=== PATIENT | female | born 1995 | race Caucasian/White ===

== ENCOUNTER → 2022-11-30 | Outpatient (CLI) | payer OTHER, SELFPAY ==
[2022-12-04 06:07] LABS: Chlamydia By Nucleic Acid AMP Negative (Negative)
[2022-12-04 10:07] LABS: Gonococcus By Nucleic Acid AMP Negative (Negative)
== END | disposition home or self-care (01) ==
LOC: LABSPEC 16:12
PROVIDERS: Visit Provider Obstetrics & Gynecology
DX: Z34.90 Encounter for supervision of normal pregnancy, unspecified, unspecified trimester (principal)
CPT/HCPCS: 87086; 87088; 87491; 87591

== ENCOUNTER → 2022-12-29 | Outpatient (CLI) | payer OTHER, SELFPAY ==
[2022-12-29 11:00] LABS: Absolute Neutrophil Count 7.4 X10^3/uL (2.0-7.7); Basophil# 0.02 X10^3/uL; Basophil% 0.2 % (0-1); Eosinophil# 0.09 X10^3/uL; Eosinophils% 0.9 % (0-5); Hematocrit 40.3 % (37-47); Hemoglobin 13.3 g/dL (12.0-15.0); Mean Corpuscular Hgb 28.4 pg (27.0-32.0); Mean Corpuscular Volume 86.1 fL (81-99); Mean Platelet Vol. 11.2 fl (6.2-12.0); NRBC Flagged by Analyzer 0 % (0-5); Neutrophil # 7.42 X10^3/uL (2.7-7.7); Neutrophil % 74.3 % (47-70); Platelet Count 255 K/mm3 (150-450); RBC Distribution Width CV 13.2 % (11.6-14.6); RBC Distribution Width SD 40.9 fl (35.1-43.9); Red Blood Count 4.68 M/mm3 (4.2-5.4)
[2022-12-29 11:15] LABS: Glucose Challenge Gest 1H 50g 121 mg/dL (70-140)
[2022-12-29 11:51] LABS: NATERA MAILED SPECIMEN
[2022-12-29 11:55] LABS: HIV - WCH Non-Reactive (Nonreactive); Hepatitis B Surface Antigen Non-Reactive (Nonreactive); Hepatitis C Antibody Non-Reactive (Nonreactive); Rubella IgG Reactive (Nonreactive); Syphilis Antibodies Non-reactive
== END | disposition home or self-care (01) ==
LOC: PAVLAB 10:39
PROVIDERS: Referring Provider Obstetrics & Gynecology; Visit Provider Obstetrics & Gynecology
DX: Z34.81 Encounter for supervision of other normal pregnancy, first trimester (principal); Z31.430 Encounter of female for testing for genetic disease carrier status for procreative management
CPT/HCPCS: 36415; 82950; 85025; 86703; 86762; 86780; 86803; 86850; 86900; 86901; 87340

== ENCOUNTER → 2023-01-25 | Outpatient (CLI) | payer OTHER, SELFPAY | END | disposition home or self-care (01) | PROVIDERS: Referring Provider Obstetrics & Gynecology; Visit Provider Obstetrics & Gynecology | DX: R07.0 Pain in throat (principal) | CPT/HCPCS: 36415; 87081 ==

== ENCOUNTER → 2023-03-28 | Outpatient (CLI) | payer OTHER, SELFPAY ==
[2023-03-28 16:20] LABS: Absolute Lymphocyte Count 1.99 X10^3/uL (0.83-4.51); Basophil# 0.02 X10^3/uL; Basophil% 0.2 % (0-1); Eosinophil# 0.11 X10^3/uL; Hematocrit 34.3 % (37-47); Hemoglobin 11.7 g/dL (12.0-15.0); Lymphocyte # 1.99 X10^3/ul (0.83-4.51); Lymphocyte % 18.3 % (19-41); Mean Corp Hgb Conc 34.1 g/dL (32-36); Mean Corpuscular Hgb 29.8 pg (27.0-32.0); Mean Corpuscular Volume 87.3 fL (81-99); Mean Platelet Vol. 10.5 fl (6.2-12.0); Monocyte# 0.67 X10^3/uL; Monocyte% 6.2 % (0-10); NRBC Flagged by Analyzer 0 % (0-5); Neutrophil # 8.03 X10^3/uL (2.7-7.7); Neutrophil % 73.8 % (47-70); Platelet Count 258 K/mm3 (150-450); RBC Distribution Width CV 12.9 % (11.6-14.6); RBC Distribution Width SD 41.1 fl (35.1-43.9); Red Blood Count 3.93 M/mm3 (4.2-5.4); White Blood Count 10.9 K/mm3 (4.4-11.0)
[2023-03-28 16:38] LABS: Glucose Challenge Gest 1H 50g 99 mg/dL (70-140)
[2023-03-28 17:04] LABS: HIV - WCH Non-Reactive (Nonreactive); Syphilis Antibodies Non-reactive
== END | disposition home or self-care (01) ==
LOC: PAVLAB 15:56
PROVIDERS: Referring Provider Obstetrics & Gynecology; Visit Provider Obstetrics & Gynecology
DX: Z13.1 Encounter for screening for diabetes mellitus (principal); Z3A.21 21 weeks gestation of pregnancy
CPT/HCPCS: 36415; 82950; 85025; 86703; 86780

== ENCOUNTER → 2023-05-10 | Outpatient (CLI) | payer OTHER, SELFPAY ==
--- NOTE | 2023-05-10 13:26 | US_ITS ---
STUDY: SECOND AND THIRD TRIMESTER OBSTETRICAL ULTRASOUND - LIMITED REASON FOR EXAM: Female, 28 years old growth -- 32 weeks LMP: September 27, 2022. PRIOR ULTRASOUND: None. TECHNIQUE: Transabdominal TECHNICAL QUALITY: Adequate. FINDINGS: There is a single intrauterine fetus. The fetus is in a cephalic presentation. There is demonstrated cardiac activity with a heart rate of 145 bpm. There is a normal amniotic fluid volume. The largest amniotic fluid pocket measures 7.5 cm. The amniotic fluid index (DARYL) is 20.0 cm. The placenta is anterior in location and is not low lying. There are Grade 1 placental changes. The cervix measures 3.2 cm in length. BIOMETRY: BPD: 8.5 cm: 34 weeks, 0 days HC: 31 cm: 34 weeks, 4 days AC: 28.4 cm: 32 weeks, 3 days FL: 6.2 cm: 32 weeks, 2 days Age by LMP: 32 weeks, 1 days. RITO by LMP: July 04, 2023. age by current US: 33 weeks, 5 days. RITO by current US: June 23, 2023. Estimated weight: 2042 grams, +/- 306 grams, 59 percentile. US/OB Limited With Biometrics IMPRESSION: Single live uterine gestation with a mean gestational age of 33 weeks and 5 days. Electronically Signed: Cristi Richardson MD at 15:46 EDT ,
== END | disposition home or self-care (01) ==
PROVIDERS: Referring Provider Obstetrics & Gynecology; Visit Provider Obstetrics & Gynecology
DX: Z36.4 Encounter for antenatal screening for fetal growth retardation (principal); Z86.16 Personal history of COVID-19
CPT/HCPCS: 76816

== ENCOUNTER → 2023-05-14 | Outpatient (CLI) | payer OTHER, SELFPAY ==
[2023-05-14 17:32] LABS: Vitamin D,25 Hydroxy 48.8 ng/mL
[2023-05-14 17:55] LABS: ALB/GLOB Ratio 0.6 RATIO (0.9-2.4); AST(SGOT) 18 U/L (15-37); Alanine Aminotransfer ALT/SGPT 18 U/L (13-56); Albumin, Serum 2.3 g/dL (3.2-5.0); Alkaline Phosphatase 100 U/L (45-117); Anion Gap 6 (5-15); BUN 4 mg/dL (7-18); BUN/Creat Ratio 7.8 RATIO (10-20); Calcium,Total 8.7 mg/dL (8.5-10.1); Chloride 111 mmol/L (98-107); Creatinine, Serum 0.51 mg/dL (0.55-1.02); EST Glomerular Filtration Rate 151 mL/min (>60); Est Glom Filt Rate - Afr Amer 183 mL/min (>60); Glucose 99 mg/dL (74-106); Potassium 3.8 mmol/L (3.5-5.1); Protein, Total 6.3 g/dL (6.4-8.2); Sodium Level 137 mmol/L (136-145)
== END | disposition home or self-care (01) ==
LOC: BIMLAB 15:25
PROVIDERS: PCP Internal Medicine; Referring Provider Internal Medicine; Visit Provider Internal Medicine
DX: F41.9 Anxiety disorder, unspecified (principal); F32.A Depression, unspecified
CPT/HCPCS: 36415; 80053; 82306

== ENCOUNTER 2023-05-26 20:38 | Outpatient (CLI) | payer OTHER, SELFPAY ==
[2023-05-26 21:07] VITALS: PULSE 93; O2SAT 99
[2023-05-26 21:08] VITALS: BP 122/79; PULSE 96; TEMP 36.7
[2023-05-26 21:14] VITALS: BMI 37.4
[2023-05-26 21:58] LABS: ROM Internal Control Test YES-OK TO RESULT pt. (Internal QC); ROM Patient Test Negative (Negative); Record Kit Lot#, ROM+ K1374
[2023-05-26] MEDS: LACTATED RINGERS 500 ML 999 ML IV ×2 (22:15→22:58)
[2023-05-26 22:30] LABS: Color, Urine Yellow (Yellow); Glucose, Dipstick Normal (Normal); Ketone-Dipstick 50 mg/dl (Negative); Leukocyte Esterase-Dipstick 100 /ul (Negative); Nitrite-Dipstick Negative (Negative); Occult Blood-Urine Negative /ul (Negative); Protein-Dipstick 15 mg/dl (Negative); Specific Gravity, Urine 1.025 (1.002-1.030); Urine Bilirubin Dipstick Negative (Negative); Urine Clarity Sl. Cloudy (Clear); Urine Urobilinogen Normal (Normal)
--- NOTE | 2023-05-27 08:37 | OB.TRI.HP_ITS ---
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 She denies lof, vaginal bleeding, or dec fm. Her initial exam upon arrival was a closed cervix with irregular contractions on the monitor. IV fluids were ordered along with a UA. 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 Endometriosis Hx of ovarian cyst Polycystic kidney disease, autosomal recessive Home Medications escitalopram oxalate 20 mg tablet (Lexapro) 20 mg PO DAILY 11/14/22 [History Last Taken 05/26/23] loratadine 10 mg tablet (Claritin) 10 mg PO DAILY 11/14/22 [History Last Taken 05/26/23] multivit-min no.71-iron fum 28 mg-folate no.1 1 mg-dha 300 mg capsule (PNV- [place]) 1 cap PO DAILY 11/14/22 [History Last Taken 05/26/23] aspirin 81 mg capsule 81 mg PO DAILY COVID in 02/13/23 [History Last Taken 05/26/23] Allergy/AdvReac Type Severity Reaction Status Date / Time peanut Allergy Severe Anaphylaxis Verified 05/26/23 21:15 tree nut AdvReac Severe Anaphylaxis Verified 05/26/23 21:15 Family History Father Myocardial infarction 48 Grandfather Myocardial infarction Liver cancer Other High cholesterol Hypertension Surgical History History of lateral meniscus repair of right knee Hx of appendectomy Hx of tonsillectomy Social History adopted: No household members: spouse housing: house current occupational status: employed 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[employer] current occupational exposures/hazards: No pets and animals: Yes (not managing litterbox) pets and animals: cat(s) history of recent travel: No sexually active: Yes Smoking Status: Never smoker Electronic Cigarette Use: not used alcohol intake: former details: ocassional but stopped in June 26 substance use type: does not use well-balanced diet: about half the time caffeine: Yes Type: coffee Number of servings: 1 eating out: rarely or never during the past year weight has: decreased > 10 lbs what type of physical activity do you participate in: walking and weight training frequency: 1-2 times per week duration: 45-60 minutes/day fiorella/yarsani: Other seatbelt use: always do you feel safe at home: Yes additional social history: - [employer] History 1 Elective abortions Hx Para 0 Spontaneous abortions Hx # Term Pregnancies Ectopic pregnancies Hx # Pregnancies Multiple births # of living children Visit Details Expected Delivery Route/Plan Labor Preferences- CB/BF classes: encouraged labor support person: jake labor intervention preferences: none pain management options preferred: epidural cut cord/dad catch: [] : both- prefer breast feeding PP control planned: [] discussed possible routes of delivery and associated risks: discussed possible delivery modalities and possible indications for each including R/B/A of , VAVD, and CS. questions answered. special requests: [] Plans Covid status: discussed Flu vaccine: discussed Tdap vaccine: done Rhogam: na LARC form signed: done movement and labor precautions reviewed. Problem list reviewed and updated with the most current plan of care details and appropriate orders placed. Relevant counseling for the gestational age provided. Continue routine care and follow up unless otherwise noted in visit notes/problem list details OB Flowsheet Initial Weight: Not Recorded Date -?-?-?-?-?-?-?-?-?-?-?-?- EGA Weight BP Urine Prot -?-?-?--?-?-?-?-?-?-?-?-?- Glucose FHR FuHt Pres Dilation -?-?-?-?-?-?-?-?-?--?-?-?- Effaced St Visit Note 11/30/22 -?-?-?-?-?-?-?-?-?-?-?-?- 9w 1d 203 lb 2 oz 122/77 -?-?-?-?-?-?-?-?-?-?-?-?- 189 -?-?-?-?-?-?-?-?-?-?-?-?- JV- single live IUP measuring 9 weeks 1 days, desires NIPT. NICU nurse at [facility]. 12/28/22 -?-?-?-?-?-?-?-?-?-?-?-?- 13w 1d 202 lb 6 oz 112/73 Nega tive -?-?-?-?-?-?-?-?-?-?-?-?- Negative 170 -?-?-?-?-?-?-?-?-?-?-?-?- SM- no vb crampi ng doing well 01/25/23 -?-?-?-?-?-?-?-?-?-?-?-?- 17w 1d 203 lb 8 oz 95/66 Nega tive -?-?-?-?-?-?-?-?-?-?-?-?- Negative 155 -?-?-?-?-?-?-?-?-?-?-?-?- JV- pt has had s trep for 4 days on keflex but getting worse. will re-swab today. want afp and to have horizon to rule out pkd. 02/22/23 -?-?-?-?-?-?-?-?-?-?-?-?- 21w 1d 209 lb 2 oz 102/62 Nega tive -?-?-?-?-?-?-?-?-?-?-?-?- Negative 150 20 -?-?-?-?-?-?-?-?-?-?-?-?- KW- + FM. no lof /cramping. no concerns KW- + FM. no lof/cramping. n o concerns. going to [place] in 3 weeks. GTT and 28 week labs discussed. give drink next visit 03/28/23 -?-?-?-?-?-?-?-?-?-?-?-?- 26w 0d 212 lb 6 oz 100/71 -?-?-?-?-?-?-?-?-?-?-?-?- 147 -?-?-?-?-?-?-?-?-?-?-?-?- JV- gct pending today. no complaints, feeling good movement, 04/09/23 -?-?-?-?-?-?-?-?-?-?-?-?- 27w 5d 217 lb 108/62 Negative -?-?-?-?-?-?-?-?-?-?-?-?- Negative 155 27 -?-?-?-?-?-?-?-?-?-?-?-?- KW-+FM. no lof/v b/ctx. GCT nl. no concerns. KW-+FM. no lof/vb/ctx. GCT n l. no concerns. LARC done 04/26/23 -?-?-?-?-?-?-?-?-?-?-?-?- 30w 1d 218 lb 4 oz 109/68 Nega tive -?-?-?-?-?-?-?-?-?-?-?-?- Negative 145 31 -?-?-?-?-?-?-?-?-?-?-?-?- JV- no lof, vagi nal bleeding, or dec fm growth scans 32 and 36 weeks for h/o covid. 05/10/23 -?-?-?-?-?-?-?-?-?-?-?-?- 32w 1d 220 lb 4 oz 106/71 Nega tive -?-?-?-?-?-?-?-?-?-?-?-?- Negative 145 33 -?-?-?--?-?-?-?-?-?-?-?-?- JV- growth today 4 lbs 8 oz 05/24/23 -?-?-?-?-?-?-?-?-?-?-?-?- 34w 1d 225 lb 102/70 Negative -?-?-?-?-?-?-?-?-?-?-?-?- Negative 140 35 -?-?-?-?-?-?-?-?-?-?-?-?- SM- no vb lof go od fm no regular ctx discussed vacuum indications ROS Constitutional Constitutional: Reports systems reviewed and no addt'l complaints, except as documented Gastrointestinal Gastrointestinal: Denies bloating, constipation, cramping, diarrhea, nausea or vomiting Genitourinary Genitourinary: Reports other Details: Denies vaginal odor, vaginal bleeding, or vaginal discharge ; Denies difficulty urinating or flank pain NST FHR Rate Baby A Baseline: 130 Variability:: Moderate Accelerations:: 15 x 15 Decelerations:: None NST Reactive:: Yes FHR Category:: Category I Assessment & Plan (1) Threatened labor, antepartum: PLAN: Cervix was closed on exam and contractions slowed down with IV fluids UA showed moderate ketones recommend home hydration, rest tonight and take tomorrow off work if scheduled keep next scheduled appt (2) COVID-19 affecting in second trimester: COMMENT: asa 81mg, growth US 32 (59%), discussed and decided against 36 week scan unless abnormal measurements. (3) Polycystic kidney disease, autosomal recessive: COMMENT: carrier, FOB tested neg. 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 zoloft. (7) Anxiety: COMMENT: counseling encouraged. (8) Supervision of high risk , antepartum: COMMENT: PRR , RITO 06/21/23, boy og Jake (9) : QUALIFIERS: Weeks of gestation: 32 weeks Qualified Code(s): Z3A.32 - 32 weeks gestation of COMMENT: NIPT low risk, discussed carrier testing, anatomy nl, AFP neg. nl GCT Charges/Coding Multi Select Codes Urinary/Genital Urinary/Genital CPT Codes: 69251-48 non-stress test Interp
== END 2023-05-26 23:35 | disposition home or self-care (01) ==
LOC: WPOUT 20:51 → WP 20:51
PROVIDERS: PCP Internal Medicine; Visit Provider Obstetrics & Gynecology
DX: O47.03 False labor before 37 completed weeks of gestation, third trimester (principal); E74.21 Galactosemia; O99.283 Endocrine, nutritional and metabolic diseases complicating pregnancy, third trimester; O99.892 Other specified diseases and conditions complicating childbirth; O99.213 Obesity complicating pregnancy, third trimester; O99.343 Other mental disorders complicating pregnancy, third trimester; Q61.2 Polycystic kidney, adult type; F32.A Depression, unspecified; F41.9 Anxiety disorder, unspecified; Z3A.34 34 weeks gestation of pregnancy; Z86.16 Personal history of COVID-19
CPT/HCPCS: 59025; 59050; 81002; 84112; 96365; 96366; J7120

== ENCOUNTER → 2023-06-07 | Outpatient (CLI) | payer OTHER, SELFPAY | END | disposition home or self-care (01) | PROVIDERS: PCP Internal Medicine; Visit Provider Obstetrics & Gynecology | DX: O09.90 Supervision of high risk pregnancy, unspecified, unspecified trimester (principal); Z3A.00 Weeks of gestation of pregnancy not specified | CPT/HCPCS: 87081 ==

== ENCOUNTER → 2023-06-14 | Outpatient (CLI) | payer OTHER, SELFPAY ==
--- NOTE | 2023-06-14 18:58 | US_ITS ---
STUDY: SECOND AND THIRD TRIMESTER OBSTETRICAL ULTRASOUND - LIMITED REASON FOR EXAM: Female, 28 years old SIZE DISCREPANCY-LGA LMP: 09/27/2022 PRIOR ULTRASOUND: 05/10/2023. TECHNIQUE: Transabdominal TECHNICAL QUALITY: Adequate. FINDINGS: There is a single intrauterine fetus. The fetus is in a cephalic presentation. There is demonstrated cardiac activity with a heart rate of 148 bpm. There is a normal amniotic fluid volume. The largest amniotic fluid pocket measures 7.7 cm. The amniotic fluid index (DARYL) is 21.4 cm. The placenta is anterior in location and is not low lying. There are Grade 2 placental changes. The cervix measures 3.2 cm in length. BIOMETRY: BPD: 9.2: 37 weeks, 3 days HC: 33.2: 38 weeks, 5 days AC: 36.0: 39 weeks, 6 days FL: 6.9: 35 weeks, 3 days Age by LMP: 37 weeks, 1 days. RITO by LMP: 07/04/2023. age by prior US: weeks, days. RITO by prior US: . age by current US: 37 weeks, 1 days. RITO by current US: 07/04/2023. Estimated weight: 3524 grams, +/- 529 grams, 87 percentile. US/OB Limited With Biometrics IMPRESSION: Single live fetus in a vertex presentation. No demonstrated anatomic abnormality. Placenta is grade 2 and is not low-lying. Cervix is closed. age by current US: 37 weeks, 1 days. RITO by current US: 07/04/2023. Estimated weight: 3524 grams, +/- 529 grams, 87 percentile. Electronically Signed: Shahid Samuel MD at 19:41 EDT ,
== END | disposition home or self-care (01) ==
LOC: US 18:57
PROVIDERS: PCP Internal Medicine; Referring Provider Obstetrics & Gynecology; Visit Provider Obstetrics & Gynecology
DX: O26.849 Uterine size-date discrepancy, unspecified trimester (principal); Z3A.00 Weeks of gestation of pregnancy not specified
CPT/HCPCS: 76816

== ENCOUNTER 2023-06-18 23:40 | Inpatient (IN) | payer OTHER, SELFPAY ==
[2023-06-18] VITALS (15 sets, daily range): BP systolic 83–144; BP diastolic 46–83; PULSE 88–116; TEMP 37.1; O2SAT 93–99; BMI 37.4
[2023-06-18 23:38] LABS: Hematocrit 35.6 % (37-47); Hemoglobin 11.7 g/dL (12.0-15.0); Mean Corp Hgb Conc 32.9 g/dL (32-36); Mean Corpuscular Hgb 27.3 pg (27.0-32.0); Mean Corpuscular Volume 83.2 fL (81-99); Mean Platelet Vol. 12.5 fl (6.2-12.0); Platelet Count 256 K/mm3 (150-450); RBC Distribution Width CV 13.2 % (11.6-14.6); Red Blood Count 4.28 M/mm3 (4.2-5.4); White Blood Count 10.1 K/mm3 (4.4-11.0)
[2023-06-18] MEDS: Lactated Ringers 1,000 ML 50 ML IV (23:45)
[2023-06-18 23:56] LABS: AST(SGOT) 15 U/L (15-37); Alanine Aminotransfer ALT/SGPT 15 U/L (13-56); Creatinine, Serum 0.55 mg/dL (0.55-1.02); EST Glomerular Filtration Rate 138 mL/min (>60); Est Glom Filt Rate - Afr Amer 167 mL/min (>60); Estimated Creatinine Clearance 135.81 ml/min; Uric Acid 4.3 mg/dL (2.6-6.0)
[2023-06-19] VITALS (81 sets, daily range): BP systolic 72–147; BP diastolic 45–91; PULSE 80–137; TEMP 36.2–37.2; O2SAT 83–100
--- NOTE | 2023-06-19 00:35 | HP.PCM.OB_ITS ---
HPI - General General Date of Admission: 06/18/23 HPI Narrative ELISABET ABDUL, is a 28 F who presents with headache and RUQ pain, nausea. 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 Endometriosis Hx of ovarian cyst Polycystic kidney disease, autosomal recessive Home Medications loratadine 10 mg tablet (Claritin) 10 mg PO DAILY 11/14/22 [History Last Taken 06/18/23 09:00] multivit-min no.71-iron fum 28 mg-folate no.1 1 mg-dha 300 mg capsule (PNV-O [place]) 1 cap PO DAILY 11/14/22 [History Last Taken 06/18/23 09:00] aspirin 81 mg capsule 81 mg PO DAILY COVID in 02/13/23 [History Last Taken 06/18/23 09:00] escitalopram oxalate 20 mg tablet (Lexapro) 20 mg PO DAILY #90 tabs 06/18/23 [Rx Last Taken 06/18/23 18:30] Allergy/AdvReac Type Severity Reaction Status Date / Time peanut Allergy Severe Anaphylaxis Verified 06/18/23 22:41 tree nut AdvReac Severe Anaphylaxis Verified 06/18/23 22:41 Family History Father Myocardial infarction 48 Grandfather Myocardial infarction Liver cancer Other High cholesterol Hypertension Surgical History History of lateral meniscus repair of right knee Hx of appendectomy Hx of tonsillectomy Social History adopted: No household members: spouse housing: house current occupational status: employed 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[employer] current occupational exposures/hazards: No pets and animals: Yes (not managing litterbox) pets and animals: cat(s) history of recent travel: No sexually active: Yes Smoking Status: Never smoker Electronic Cigarette Use: not used alcohol intake: former details: ocassional but stopped in June 26 substance use type: does not use well-balanced diet: about half the time caffeine: Yes Type: coffee Number of servings: 1 eating out: rarely or never during the past year weight has: decreased > 10 lbs what type of physical activity do you participate in: walking and weight training frequency: 1-2 times per week duration: 45-60 minutes/day fiorella/jewish: Other seatbelt use: always do you feel safe at home: Yes additional social history: - [employer] History 1 Elective abortions Hx Para 0 Spontaneous abortions Hx # Term Pregnancies Ectopic pregnancies Hx # Pregnancies Multiple births # of living children Visit Details Expected Delivery Route/Plan Labor Preferences- CB/BF classes: encouraged labor support person: jake labor intervention preferences: none pain management options preferred: epidural cut cord/dad catch: [] : both- prefer breast feeding PP control planned: [] discussed possible routes of delivery and associated risks: discussed possible delivery modalities and possible indications for each including R/B/A of , VAVD, and CS. questions answered. special requests: [] Plans Covid status: discussed Flu vaccine: discussed Tdap vaccine: done Rhogam: na LARC form signed: done movement and labor precautions reviewed. Problem list reviewed and updated with the most current plan of care details and appropriate orders placed. Relevant counseling for the gestational age provided. Continue routine care and follow up unless otherwise noted in visit notes/problem list details OB Flowsheet Initial Weight: Not Recorded Date -?-?-?-?-?-?-?-?-?-?-?-?- EGA Weight BP Urine Prot -?-?-?-?-?-?-?-?-?-?-?-?- Glucose FHR FuHt Pres Dilation -?-?-?-?-?-?-?-?-?-?-?-?- Effaced St Visit Note 11/30/22 -?-?-?-?-?-?-?-?-?-?-?-?- 9w 1d 203 lb 2 oz 122/77 -?-?-?-?-?-?-?-?-?-?-?-?- 189 -?-?-?-?-?-?-?-?-?-?-?-?- JV- single live IUP measuring 9 weeks 1 days, desires NIPT. NICU nurse at [place]. 12/28/22 -?-?-?-?-?-?-?-?-?-?-?-?- 13w 1d 202 lb 6 oz 112/73 Nega tive -?-?-?-?-?-?-?-?-?-?-?-?- Negative 170 -?-?-?-?-?-?-?-?-?-?-?--?- SM- no vb crampi ng doing well 01/25/23 -?-?-?-?-?-?-?-?-?-?-?-?- 17w 1d 203 lb 8 oz 95/66 Nega tive -?-?-?-?-?-?-?-?-?-?-?-?- Negative 155 -?-?-?-?-?-?-?-?-?-?-?-?- JV- pt has had s trep for 4 days on keflex but getting worse. will re-swab today. want afp and to have horizon to rule out pkd. 02/22/23 -?-?-?-?-?-?-?-?-?-?-?-?- 21w 1d 209 lb 2 oz 102/62 Nega tive -?-?-?-?-?-?-?-?-?-?-?-?- Negative 150 20 -?-?-?-?-?-?-?-?-?-?-?-?- KW- + FM. no lof /cramping. no concerns KW- + FM. no lof/cramping. n o concerns. going to [place] in 3 weeks. GTT and 28 week labs discussed. give drink next visit 03/28/23 -?-?-?-?-?-?-?-?-?-?-?-?- 26w 0d 212 lb 6 oz 100/71 -?-?-?-?-?-?-?-?-?-?-?-?- 147 -?-?-?-?-?-?-?-?-?-?-?-?- JV- gct pending today. no complaints, feeling good movement, 04/09/23 -?-?-?-?-?-?-?-?-?-?-?-?- 27w 5d 217 lb 108/62 Negative -?-?-?-?-?-?-?-?-?-?-?-?- Negative 155 27 -?-?-?-?-?-?-?-?-?-?-?-?- KW-+FM. no lof/v b/ctx. GCT nl. no concerns. KW-+FM. no lof/vb/ctx. GCT n l. no concerns. LARC done 04/26/23 -?-?-?-?-?-?-?-?-?-?-?-?- 30w 1d 218 lb 4 oz 109/68 Nega tive -?-?-?-?-?-?-?-?-?-?-?-?- Negative 145 31 -?-?-?-?-?-?-?-?-?-?-?-?- JV- no lof, vagi nal bleeding, or dec fm growth scans 32 and 36 weeks for h/o covid. 05/10/23 -?-?-?-?-?-?-?-?-?-?-?-?- 32w 1d 220 lb 4 oz 106/71 Nega tive -?-?-?-?-?-?-?-?-?-?-?-?- Negative 145 33 -?-?-?-?-?-?-?-?-?-?-?-?- JV- growth today 4 lbs 8 oz 05/24/23 -?-?-?-?-?-?-?-?-?-?-?-?- 34w 1d 225 lb 102/70 Negative -?-?-?-?-?-?-?-?-?-?-?-?- Negative 140 35 -?-?-?-?-?-?-?-?-?-?-?-?- SM- no vb lof go od fm no regular ctx discussed vacuum indications 06/07/23 -?-?-?-?-?-?-?-?-?-?-?-?- 36w 1d 226 lb 2 oz 109/77 Nega tive -?-?-?-?-?-?-?-?-?-?-?-?- Negative 145 38.5 Cephalic 1 .5 -?-?-?-?-?-?-?-?-?-?-?-?- 70 -2 JV- no lof , vaginal bleeding, or dec fm. measuring LGA today. formal scan ordered. 06/15/23 -?-?-?-?-?-?-?-?-?-?-?-?- 37w 2d 229 lb 2 oz 117/82 Nega tive -?-?-?-?-?-?-?-?-?-?-?-?- Negative 150 40 2.5 -?-?-?-?-?-?-?-?-?-?-?-?- 90 -2 SM- co eda e increased discharge no lof only clear no itching or burning no regular ctx no vb NST FHR Rate Baby A Baseline: 150 Variability:: Moderate Accelerations:: 15 x 15 Decelerations:: Prolonged (upon initial evaluation, after monitoring none) NST Reactive:: Yes FHR Category:: Category I Uterine Activity:: irregular ROS Constitutional Constitutional: Reports systems reviewed and no addt'l complaints, except as documented Eyes Eyes: Denies change in vision ENT HEENT: Reports systems reviewed and no addt'l complaints, except as documented; Denies headache(s) Cardiovascular Cardiovascular: Reports systems reviewed and no addt'l complaints, except as documented; Denies chest pain or dyspnea Respiratory/Chest Respiratory/Chest: Reports systems reviewed and no addt'l complaints, except as documented Gastrointestinal Gastrointestinal: Reports systems reviewed and no addt'l complaints, except as documented; Denies abdominal pain Genitourinary Genitourinary: Reports systems reviewed and no addt'l complaints, except as documented, contractions Details: present (irregular) and movement Details: present; Denies dysuria or genital lesions Musculoskeletal Musculoskeletal: Reports systems reviewed and no addt'l complaints, except as documented Neurologic Neurologic: Reports systems reviewed and no addt'l complaints, except as documented Endocrine Endocrinology: Reports systems reviewed and no addt'l complaints, except as documented Vital Signs Vital Signs Vital Signs: 06/18/23 22:34 06/18/23 22:34 06/18/23 22:34 Temperature Temperature Source Pulse Rate 112 H 116 H Blood Pressure 144/78 H BP Systolic 144 BP Diastolic 78 Pulse Ox 06/18/23 22:34 06/18/23 22:34 06/18/23 22:34 Temperature 98.7 F Temperature Source Temporal Pulse Rate Blood Pressure BP Systolic BP Diastolic Pulse Ox 99 06/18/23 22:49 06/18/23 22:49 06/18/23 23:04 Temperature Temperature Source Pulse Rate 102 H Blood Pressure 139/79 H 137/83 H BP Systolic 139 137 BP Diastolic 79 83 Pulse Ox 06/18/23 23:04 06/18/23 23:21 06/18/23 23:21 Temperature Temperature Source Pulse Rate 113 H 102 H Blood Pressure 84/48 L BP Systolic 84 BP Diastolic 48 Pulse Ox 06/18/23 23:22 06/18/23 23:22 06/18/23 23:23 Temperature Temperature Source Pulse Rate 94 94 Blood Pressure 83/46 L BP Systolic 83 BP Diastolic 46 Pulse Ox 06/18/23 23:23 06/18/23 23:27 06/18/23 23:27 Temperature Temperature Source Pulse Rate 88 Blood Pressure BP Systolic BP Diastolic Pulse Ox 98 93 06/18/23 23:28 06/18/23 23:28 06/18/23 23:28 Temperature Temperature Source Pulse Rate 100 Blood Pressure 123/70 H BP Systolic 123 BP Diastolic 70 Pulse Ox 99 06/18/23 23:33 06/18/23 23:33 06/18/23 23:38 Temperature Temperature Source Pulse Rate 105 H 106 H Blood Pressure BP Systolic BP Diastolic Pulse Ox 99 06/18/23 23:38 06/18/23 23:43 06/18/23 23:43 Temperature Temperature Source Pulse Rate 99 Blood Pressure BP Systolic BP Diastolic Pulse Ox 98 98 06/18/23 23:48 06/18/23 23:48 06/18/23 23:50 Temperature Temperature Source Pulse Rate 96 Blood Pressure 118/78 BP Systolic 118 BP Diastolic 78 Pulse Ox 98 06/18/23 23:50 06/18/23 23:53 06/18/23 23:53 Temperature Temperature Source Pulse Rate 90 91 Blood Pressure BP Systolic BP Diastolic Pulse Ox 99 06/18/23 23:58 06/18/23 23:58 06/19/23 00:03 Temperature Temperature Source Pulse Rate 93 98 Blood Pressure BP Systolic BP Diastolic Pulse Ox 98 06/19/23 00:03 06/19/23 00:04 06/19/23 00:04 Temperature Temperature Source Pulse Rate 88 Blood Pressure 118/78 BP Systolic 118 BP Diastolic 78 Pulse Ox 98 06/19/23 00:08 06/19/23 00:08 06/19/23 00:13 Temperature Temperature Source Pulse Rate 91 92 Blood Pressure BP Systolic BP Diastolic Pulse Ox 98 06/19/23 00:13 06/19/23 00:18 06/19/23 00:18 Temperature Temperature Source Pulse Rate 92 Blood Pressure BP Systolic BP Diastolic Pulse Ox 99 99 06/19/23 00:20 06/19/23 00:20 Temperature Temperature Source Pulse Rate 95 Blood Pressure 130/87 H BP Systolic 130 BP Diastolic 87 Pulse Ox Weight Weight: 224 lb 13.944 oz Body Mass Index (BMI) 37.4 Physical Exam Const alert, oriented x3, no apparent distress and healthy appearing HEENT normocephalic and moist oral mucous membranes Head and Scalp: atraumatic Neck full ROM, no lymphadenopathy, supple and thyroid normal General: trachea midline Lymph Lymphatic: no lymphadenopathy noted Chest inspection of chest normal Resp normal respiratory effort Cardio regular rate GI normal to inspection, nondistended, normoactive bowel sounds, soft to palpation and non-tender Inspection: gravid external exam normal Manual OB Exam: estimated gestational size appropriate, presentation cephalic, dilated, effaced and station Extremity normal to inspection General Extremity: Negative for edema Skin no rashes or lesions noted Neuro no focal motor deficits and deep tendon reflexes 2+ bilaterally Motor Exam: strength 5/5 throughout and clonus absent Psych mental status grossly normal Labs Labs Labs: Blood Type A POSITIVE Antibody Screen NEGATIVE Hct 35.6 % (37-47) L Hgb 11.7 g/dL (12.0-15.0) L Obstetrics US Syphilis Total Ab Non-reactive Rubella IgG Antibody Reactive (Nonreactive) Hep Bs Antigen Non-Reactive (Nonreactive) Chlamydia DNA (MICAH) Negative (Negative) Neisseria gonorrhoeae DNA (MICAH) Negative (Negative) HIV 1&2 Antibody Non-Reactive (Nonreactive) Glucose 1 Hr 50 gm 99 mg/dL (70-140) Miscellaneous Test Assessment & Plan (1) COVID-19 affecting in second trimester: COMMENT: asa 81mg, growth US 32 (59%), discussed and decided against 36 week scan unless abnormal measurements. (2) Polycystic kidney disease, autosomal recessive: COMMENT: carrier, FOB tested neg. 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 zoloft. (6) Anxiety: COMMENT: counseling encouraged. (7) Supervision of high risk , antepartum: COMMENT: PRR , RITO 06/21/23, boy og Jake (8) : QUALIFIERS: Weeks of gestation: 37 weeks Qualified Code(s): Z3A.37 - 37 weeks gestation of COMMENT: GBS negative. NIPT low risk, discussed carrier testing, anatomy nl, AFP neg. nl GCT (9) heart deceleration: COMMENT: plan admit for IOL since term PLAN: Plan Patient presents IOL, plan management for with pitocin/AROM. 4 cm dilated Pain management: plans epidural. GBS negative. Management of any complications: none I have reviewed the [facility] and made any clinically relevant updates.
[2023-06-19 01:26] LABS: Protein, Urine (Random) 23.9 mg/dL (<11.9); Protein:Creat Ratio 208 mg/g CRE (0-200)
[2023-06-19] MEDS: Oxytocin 15 Units/NS 250ml 15 UNITS/250 ML IV.SOLN 2 UNITS IV (02:15)
[2023-06-19] MEDS: LACTATED RINGERS 500 ML 999 ML IV ×3 (03:41→11:40)
--- NOTE | 2023-06-19 07:52 | PN_ITS ---
Progress Note coping well with contractions current tracing: FHT: 150Moderate variability reactive no decelerations category I tracing [place]: 2-4 Contractions A/P: continue to titrate pitocin per protocol epidural upon request AROM after epidural continue position changes anticipate Assessment & Plan Assessment/Plan (1) heart deceleration: (2) COVID-19 affecting in second trimester: (3) Obesity affecting : (4) Depression: (5) Anxiety: (6) Supervision of high risk , antepartum: (7) : QUALIFIERS: Weeks of gestation: 37 weeks Qualified Code(s): Z3A.37 - 37 weeks gestation of Multi Select Codes Urinary/Genital Urinary/Genital CPT Codes: No Charge
[2023-06-19] MEDS: hydrOXYzine PAM 25 MG Capsule 50 MG PO (10:02)
[2023-06-19] MEDS: Lactated Ringers 1,000 ML 200 ML IV ×3 (11:05→19:51)
[2023-06-19] MEDS: fentaNYL-bupivacaine (epidural) 100 ML BAG EPIDURAL ×3 (11:34→20:34)
[2023-06-19] MEDS: ePHEDrine Sulfate 50 MG/ML Ampul 10 MG IM (11:52)
[2023-06-19] MEDS: ePHEDrine Sulfate 50 MG/ML Ampul 10 MG IV (11:52)
[2023-06-19] MEDS: Oxytocin 15 Units/NS 250ml 15 UNITS/250 ML IV.SOLN 20 UNITS IV (19:52)
[2023-06-19] MEDS: Ondansetron 4 MG/2 ML Vial IV (20:27)
[2023-06-19] MEDS: 0.9% Saline Lock 10 ML Syringe IV (20:30)
--- NOTE | 2023-06-19 23:47 | PCM.PN.BLA ---
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
[2023-06-20] VITALS (21 sets, daily range): BP systolic 92–139; BP diastolic 55–88; PULSE 85–136; RESP 12–22; TEMP 35.9–37.7; O2SAT 96–100
[2023-06-20] MEDS: Lactated Ringers 1,000 ML 200 ML IV (01:10)
[2023-06-20] MEDS: fentaNYL-bupivacaine (epidural) 100 ML BAG EPIDURAL (01:21)
[2023-06-20] MEDS: LACTATED RINGERS 500 ML 999 ML IV (02:47)
--- NOTE | 2023-06-20 03:00 | PCM.PN.BLA ---
Progress Note Patient comfortable with epidural. continues pushing. decent made in last hour of pushing, maternal exhaustion noted current tracing: FHT: minimal to moderate variability reactive, occasional late decelerations, overall reassuring, category II tracing [place]: 2-3 minute Contractions reviewed tracing abnormalities since last note: Cat 2 tracing. A/P: Dr Villa updated on maternal pushing progress, FHT, and noted maternal exhaustion. Discussed possible use of vacuum by Dr Sanchez. Patient requested to try vacuum and Dr Sanchez called to assess. 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
[2023-06-20] MEDS: Cefazolin 2 GM in 0.9% Normal Saline 100 ML IV (03:37)
--- NOTE | 2023-06-20 03:43 | PN_ITS ---
Progress Note pt has been pushing x 4 hrs total. She consents to a vacuum trial but only wants 2 pulls. current tracing: FHT: minimal to Moderate variability, recurrent late and variable decelerations [place]: q2-4 mi Contractions The kiwi was placed on the head anterior to the posterior fontanelles. With the first push the vacuum did not result in much decent of the head. A second attempt was made and the kiwi popped off. reviewed tracing abnormalities since last note: category 2 tracing A/P: failed vacuum extractions plan for section now. After discussing the patient's diagnosis and treatment plan options, patient wishes to proceed with surgical management. I have discussed with the patient the risks, benefits, and alternatives of the procedure which include but are not limited to risks of anesthesia, bleeding, infection, possible damage to bowel, bladder, or surrounding vasculature which could lead to additional surgery to evaluate any complications. Patient agrees to procedure and wishes to proceed with primary section over more pulls with the vacuum
[2023-06-20] MEDS: Ondansetron 4 MG/2 ML Vial IV (04:05)
--- NOTE | 2023-06-20 04:34 | EX.PCM.OBRPT ---
Assessment & Plan (1) heart deceleration: COMMENT: plan admit for IOL since term (2) COVID-19 affecting in second trimester: COMMENT: asa 81mg, growth US 32 (59%), discussed and decided against 36 week scan unless abnormal measurements. (3) Obesity affecting : COMMENT: 1 TM GCT encouarged healthy weight gain (4) Depression: COMMENT: counseling encouraged. zoloft. (5) Anxiety: COMMENT: counseling encouraged. (6) Supervision of high risk , antepartum: COMMENT: PRR , RITO 06/21/23, boy og Trell (7) : QUALIFIERS: Weeks of gestation: 37 weeks Qualified Code(s): Z3A.37 - 37 weeks gestation of COMMENT: GBS negative. NIPT low risk, discussed carrier testing, anatomy nl, AFP neg. nl GCT (8) Polycystic kidney disease, autosomal recessive: COMMENT: carrier, FOB tested neg. 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: COMMENT: recommend FOB to be tested neg Maternal Data Information RITO Calculator Estimated Delivery Date Method Current WG Current Estimate 07/04/23 Ultrasound #1 38w 0d Other Estimates 06/21/23 LMP (Certain) 39w 6d Final RITO: 07/04/23 Gestational age: 38 weeks 0 days Doctor Who Attended Delivery: April Ontiveros Details Operative Information Date of Procedure: 06/20/23 Pre-Operative Diagnosis: 28 y/o @ 38 weeks 0 days, heart rate decelerations (category 2 FHT), second stage of labor arrest, incomplete/failed vacuum extraction Post-Operative Diagnosis: 28 y/o @ 38 weeks 0 days, heart rate decelerations (category 2 FHT), second stage of labor arrest, incomplete/failed vacuum extraction Classification: SARATH Procedure Type: low transverse flipping machine operator #1: Gloria Roth Type of Anesthesia: Epidural Antibiotic Given: Ancef 2 grams IV x1 and Zithromax 500 mg/5 mL X1 Estimated Blood Loss: 700cc Findings Description of Procedure: Details of delivery: This is a 28 year old woman who was admitted to labor and delivery for heart rate deceleration in triage. The decision was made to perform a vacuum extraction due to arrest of 2nd stage of labor. She pushed for a total of 4 hours with Daisy Ochoa CNM and requested a vacuum extraction but with only 1 pull requested. The tracing was showing some runs of late decelerations followed by moderate, some minimal variability, and some accelerations. Overall the tracing was noted to be a category 2 tracing. The risk benefits and alternatives of the procedure were discussed with the patient and verbal consent was obtained. The infant was noted to be at a +2 station, the cervix was completely dilated. The infant's head was noted to be in the right occiput anterior presentation. The vacuum was placed in the correct placement in front of the posterior fontanelle. This was confirmed digitally. With the patient's next contraction, the vacuum was inflated and a gentle downward pressure was used to assist with bringing the baby's head to a slight lower station. After the first contraction and 1st pull the procedure was halted and the patient was verbally consented to either pull one more time or proceed with a primary section. She decided to try one more pull with the next contraction. With 1 pull there was a pop off and the decision was made to proceed with a section. After discussing the patient's diagnosis and treatment plan options, patient wishes to proceed with surgical management. I had discussed with the patient the risks, benefits, and alternatives of the procedure which include but are not limited to risks of anesthesia, bleeding, infection, possible damage to bowel, bladder, or surrounding vasculature which could lead to additional surgery to evaluate any complications. Patient agrees to procedure and wishes to proceed. Epidural anesthesia was found to be adequate, Velasco catheter was in place. The patient was placed in the dorsal supine position with leftward tilt. Patient was prepped and draped in the normal sterile fashion. Pfannenstiel skin incision was made with the scalpel and carried through to the underlying layer of fascia with the scalpel. Fascia was nicked in the midline and the incision extended laterally. The rectus bellies were dissected off superiorly and inferiorly with out complication both sharply and bluntly. The peritoneum was entered digitally. The incision was stretched and a low transverse uterine incision was made with the scalpel. The infant's head was delivered atraumatically followed by the anterior and posterior shoulders without complication the rest of the delivered. The cord was clamped and cut and the infant was handed off to awaiting nurse. The placenta was delivered spontaneously immediately following and was noted to be intact and have a three-vessel cord. The uterus was exteriorized cleared of all clots and debris, and the incision was closed in a double layer closure using #1 Vicryl and #1 Monocryl. The ovaries and fallopian tubes were noted to be within normal limits. The uterus was returned to the maternal abdomen and gutters were cleared of all clots and debris. The peritoneum was closed with 3-0 Monocryl in a running fashion. Fascia was closed with 0 PDS in a running fashion. Subcutaneous tissue was copiously irrigated and the skin was closed with 3-0 Monocryl in a subcuticular fashion. Mepilex dressing was applied without complication. Patient was taken to recovery in stable condition. It was discussed with the patient that based on the clinical information obtained during this encounter, combined with her history, at this time I would recommend repeat section if next baby equal or more weight than this baby for future deliveries if further pregnancies are desired. the baby's first score was 8, the second is pending and the baby is receiving cpap currently. Will check back with peds after resuscitation. Presentation: Positive for Vertex Amniotic Membrane Rupture Type: Artificial Amniotic Fluid Description: Clear Placental Delivery Description: Expressed Placenta Disposition: [facility] Cord Vessel Description: 3 Vessels Cord Entanglement: None Cord Gases: ABG and VBG A Gender: Male (1 minute): 8 Delayed Cord Clamping: No Complications Risks of Surgery Discussed w/Patient: Bleeding, Anesthesia Risks, Need for Future C-Sections and Injury to surrounding structure(s) including bowel and bladder Multi Select Codes Urinary/Genital Urinary/Genital CPT Codes: 81082 Delivery global pkg and Other Procedure See Report (attempted vacuum delivery )
[2023-06-20] MEDS: Oxytocin 15 Units/NS 250ml 15 UNITS/250 ML IV.SOLN 83 UNITS IV (04:50)
[2023-06-20] MEDS: Ketorolac 30 MG/ML Syringe IV ×4 (05:21→22:46)
[2023-06-20] MEDS: Acetaminophen 500 MG Tablet 1000 MG PO ×4 (05:22→22:47)
[2023-06-20] MEDS: HYDROmorphone 1 MG/ML Syringe IV ×2 (05:43→08:59)
[2023-06-20] MEDS: Lactated Ringers 1,000 ML 100 ML IV (07:58)
--- NOTE | 2023-06-20 10:05 | NURSING ---
1005- IBCLC in room to round with family. Pt trying to rest so IBCLC introduced self and told pt she can call out at anytime today for pump assistance as needed. Encouragement and support given.
[2023-06-20] MEDS: Enoxaparin 40 MG/0.4 ML Syringe SC (16:58)
[2023-06-20] MEDS: 0.9% Saline Lock 10 ML Syringe IV ×2 (17:02→22:47)
[2023-06-20] MEDS: oxyCODONE 5 MG Tablet PO (20:47)
[2023-06-21 00:15] VITALS: BP 93/57; PULSE 98; RESP 16; TEMP 36.3; O2SAT 96
[2023-06-21] MEDS: oxyCODONE 5 MG Tablet PO (01:17)
[2023-06-21 03:25] VITALS: BP 98/57; PULSE 92; RESP 16; TEMP 36.5; O2SAT 100
[2023-06-21] MEDS: Acetaminophen 500 MG Tablet 1000 MG PO (05:22)
[2023-06-21 05:36] LABS: Hematocrit 29.1 % (37-47); Hemoglobin 9.2 g/dL (12.0-15.0); Mean Corp Hgb Conc 31.6 g/dL (32-36); Mean Corpuscular Hgb 27.5 pg (27.0-32.0); Mean Corpuscular Volume 86.9 fL (81-99); Mean Platelet Vol. 11.8 fl (6.2-12.0); Platelet Count 180 K/mm3 (150-450); RBC Distribution Width CV 13.8 % (11.6-14.6); RBC Distribution Width SD 42.8 fl (35.1-43.9); Red Blood Count 3.35 M/mm3 (4.2-5.4); White Blood Count 13.7 K/mm3 (4.4-11.0)
--- NOTE | 2023-06-21 05:45 | DS.PCM_ITS ---
Providers Date of Admission: 06/18/23 Primary Care Physician: Dr. Alayna Hanson MD Reason For Visit: PRIMARY C SECTION Diagnosis Discharge Diagnosis (1) heart deceleration: Status: Acute (2) COVID-19 affecting in second trimester: Status: Acute Code(s): O98.512 - Other viral diseases complicating , second trimester; U07.1 - COVID-19 (3) Obesity affecting : Status: Acute Code(s): O99.210 - Obesity complicating , unspecified trimester (4) Depression: Status: Acute Code(s): F32.A - Depression, unspecified (5) Anxiety: Status: Acute Code(s): F41.9 - Anxiety disorder, unspecified (6) Supervision of high risk , antepartum: Status: Acute Code(s): O09.90 - Supervision of high risk , unspecified, unspecified trimester (7) : Status: Acute Code(s): Z34.90 - Encounter for supervision of normal , unspecified, unspecified trimester Qualifiers: Weeks of gestation: 37 weeks Qualified Code(s): Z3A.37 - 37 weeks gestation of (8) Polycystic kidney disease, autosomal recessive: Status: Acute Code(s): Q61.19 - Other polycystic kidney, infantile type 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: Status: Acute Code(s): Z14.8 - Genetic carrier of other disease Medications at Discharge Home Medications multivit-min no.71-iron fum 28 mg-folate no.1 1 mg-dha 300 mg capsule (PNV- [place]) 1 cap PO DAILY 11/14/22 escitalopram oxalate 20 mg tablet (Lexapro) 20 mg PO DAILY #90 tabs 06/18/23 ibuprofen 800 mg tablet 800 mg PO Q8H PRN pain #30 tabs 06/21/23 ondansetron HCl 4 mg tablet 4 mg PO Q6H PRN nausea and vomiting #20 tabs 06/21/23 oxycodone 5 mg capsule 5 mg PO Q6H PRN pain 7 days #20 caps 06/21/23 Hospital Course Operations section Summary of Care Provided Minutes Spent on Discharge: 15 Hospital Course: The patient was admitted to L&D on 06/19/2023 for heart rate decelerations and for IOL. She progressed to complete on 06/20/23 but pushed for about 4 hours. A vacuum delivery was attempted, however the patient only wanted to try 2 pulls and the head did not descend much. She was taken for a primary section and surgery was without complication. Her baby was sent to [facility] for apnea that was believed to be secondary to subdural and subgaleal hematomas. News from [place] the following day on 06/21/23 after delivery, was that the infant was doing well off o2 and feeding well. The patient was recovering well and requested discharge to unite with her baby. Physical Exam HEENT normocephalic Resp normal respiratory effort and normal air movement GI soft to palpation, non-tender and non-distended Rectal Exam: other Other Details: Incision is clean, dry, and intact no CVA tenderness Extremity normal to inspection General Extremity: edema bilateral (trace ) Weight / BMI Weight Weight: 224 lb 13.944 oz Body Mass Index (BMI) 37.4 ABG / Lab / Microbiology Data 06/21/23 05:30 06/18/23 23:15 Laboratory: Laboratory Results - last 24 hr 06/21/23 05:30: WBC 13.7 H, RBC 3.35 L, Hgb 9.2 L, Hct 29.1 L, MCV 86.9, MCH 27.5, MCHC 31.6 L, RDW Std Deviation 42.8, RDW Coeff of [place] 13.8, Plt Count 180, MPV 11.8 D/C Instructions Discharge Diet: No restrictions Discharge Activity: May Not Drive (for 2 weeks or while taking narcotic pain medications.), May Shower and May Take a Tub Bath (in 7 days.) May resume sexual activity in: 4-6 weeks Weight Bearing Status: Full weight bearing Lifting Restrictions: 20 pounds Call your doctor if your incision/area has: Continuous Slow Oozing, Sudden Increased Bleeding, Increased Pain/ Swelling, Increased Redness and Foul Smelling Discharge Call your doctor if you observe: Fever of 101 or Higher and Using more than 1 pad per hour Suture Line Care: Avoid Pulling/Pushing and Avoid Pinching/Bending Cleanse incision/area with: Soap & Water and Keep Dressing Clean & Dry Please Follow Up With: Becky Sanchez, When: Call [phone] to make an appointment for an incision check in 1-2 weeks. Meaningful Use Info Meaningful Use Diagnoses (Choose all that apply): None applicable Discharge Plan Admission Admit Date/Time: 06/18/23 23:40 Primary Reason for Your Visit: section Attending Provider: Becky Sanchez Primary Care Provider: Alayna Hanson Discharge Orders/Prescriptions Prescriptions: New ibuprofen 800 mg tablet 800 mg PO Q8H PRN (Reason: pain) Qty: 30 0RF oxycodone 5 mg capsule 5 mg PO Q6H PRN (Reason: pain) 7 Days Qty: 20 0RF ondansetron HCl 4 mg tablet 4 mg PO Q6H PRN (Reason: nausea and vomiting) Qty: 20 0RF Continued PNV-[place] 28-1-300 mg capsule 1 cap PO DAILY escitalopram oxalate [Lexapro] 20 mg tablet 20 mg PO DAILY Qty: 90 1RF Discontinued loratadine [Claritin] 10 mg tablet 10 mg PO DAILY aspirin 81 mg capsule 81 mg PO DAILY Referrals / Follow Up: Alayna Hanson MD [Primary Care Provider] - Disposition Disposition (needs filled in before D/C Order can be placed): Home, Self Care
[2023-06-21] MEDS: Naproxen 500 MG Tablet PO (06:20)
[2023-06-21 07:00] VITALS: BP 107/65; PULSE 89; RESP 18; TEMP 36.5; O2SAT 98
== END 2023-06-21 09:50 | disposition home or self-care (01) | DRG 787 ==
LOC: WPOUT 23:43 → WP 23:43
PROVIDERS: Admitting Provider Obstetrics & Gynecology; PCP Internal Medicine; Referring Provider Obstetrics & Gynecology; Visit Provider Obstetrics & Gynecology
DX: O76 Abnormality in fetal heart rate and rhythm complicating labor and delivery (principal); Q61.19 Other polycystic kidney, infantile type; F32.A Depression, unspecified; F41.9 Anxiety disorder, unspecified; O99.214 Obesity complicating childbirth; O99.892 Other specified diseases and conditions complicating childbirth; Z14.8 Genetic carrier of other disease; Z37.0 Single live birth; O99.344 Other mental disorders complicating childbirth; O32.4XX0 Maternal care for high head at term, not applicable or unspecified; Z79.899 Other long term (current) drug therapy; O75.81 Maternal exhaustion complicating labor and delivery; O63.1 Prolonged second stage (of labor); Z3A.38 38 weeks gestation of pregnancy; Z86.16 Personal history of COVID-19
CPT/HCPCS: 59025; 59050; 76815; 82565; 82570; 84156; 84450; 84460; 84550; 85027; 99221; 99252; J7120; A4216; G0378; G0463; J2405

== ENCOUNTER → 2023-09-12 | Outpatient (CLI) | payer OTHER, SELFPAY ==
--- NOTE | 2023-09-12 09:04 | CT_ITS ---
STUDY: CT ABDOMEN AND PELVIS WITH CONTRAST REASON FOR EXAM: Female, 28 years old. Abdominal pain/hematoma. Prior . RADIATION DOSAGE (If Supplied By Facility): CTDIvol = ( 14.65 ) mGy, DLP = ( 1016.54 ) mGycm TECHNIQUE: Transaxial images were obtained from the dome of the diaphragm to the symphysis pubis with oral contrast. Oral and amp; IV Gastrografin and amp; 100mL Isovue-370 was administered. Sagittal and coronal images were reconstructed. Individualized dose optimization techniques were used for this CT. COMPARISON: None. FINDINGS: The visualized lung bases are unremarkable. The visualized portions of the heart are within normal limits. There is a 1.4 cm x 1.6 cm hypodensity with peripheral enhancement along its lateral aspect in the posterior aspect of the dome of the right lower liver. This most likely represents a small hepatic hemangioma. Normal gallbladder and extrahepatic biliary system. Normal spleen. Normal pancreas. Normal bilateral adrenal glands. Normal right kidney. Normal left kidney. Normal visualized stomach. Normal small intestine. Moderate amount of fecal material is seen in the colon. Scattered sigmoid diverticula. The appendix is visualized and appears normal. Normal abdominal aorta. Normal inferior vena cava. Normal retroperitoneum. Normal urinary bladder. IUD is seen within the endometrium. Mild degree of increased markings are seen in the subcutaneous fat overlying the lower pelvis more prominent on the right side. There is a 2.1 cm x 1.4 cm walled off fluid collection. Normal osseous structures. CT/Abdomen/Pelvis WITH Contrast IMPRESSION: Postoperative changes in the subcutaneous tissues underlying the site of the prior section as described. This is worse on the right side of the midline with a 2.1 cm x 1.4 cm circumscribed fluid collection. Electronically Signed: Cristi Richardson MD at 12:39 EST ,
== END | disposition home or self-care (01) ==
LOC: CT 09:04
PROVIDERS: PCP Internal Medicine; Referring Provider Obstetrics & Gynecology; Visit Provider Obstetrics & Gynecology
DX: R10.9 Unspecified abdominal pain (principal)
CPT/HCPCS: 74177; Q9967

== ENCOUNTER → 2023-12-21 | Outpatient (CLI) | payer OTHER, SELFPAY ==
--- OUTSIDE RECORDS SUMMARY | 2023-12-21 16:12 | XMS RPT_ITS | CCD ---
Author Name Unknown Address [address] [place] [address] Organization [facility] Care Team Providers Care Gemologist Name Role Phone RUBY PARKS Unavailable Unavailable RUBY PARKS Unavailable Unavailable ESTELLA AMADOR Unavailable Unavailable FELISHA SEPULVEDA Unavailable Unavailable ESTELLA AMADOR Unavailable Unavailable HEATHER BECKER Primary Care Unavailable ROBER ABRAHAM Attending Unavailable REFERRED, SELF Referring Unavailable SHITAL FUENTES Referring UnavailJOSE Chavira Attending Unavailable DOC, MISC Primary Care Unavailable Problems Problem Classification Problem Date Documented Da te Episodic/Chronic Unclassified (2 sources) Encounter for screening for malignant neoplasm of cervix; Translations: [Encounter for screening for malignant neoplasm of cervix] Onset: 07-10-2017 Episodic Results Test Name Value Interpretation Reference Range Facil ity Encounters Encounter Date Encounter Type Care Provider Facility Start: 02-20-2023 End: 02-20-2023 ambulatory SHITAL FUENTES [facility] Start: 10-03-2022 End: 10-03-2022 ambulatory HEATHER BECKER [facility] Start: 06-03-2018 End: 06-03-2018 Emergency department patient visit ESTELLA AMADOR Facility:A Start: 07-10-2017 Ambulatory RUBY PARKS [facility] Payers Date Payer Category Payer Unknown [id number] 1994 Unknown [id number] 1994 Unknown [id number] .. [id number] Unknown Summary Purpose Family History No Family History Records FoundNo Family History Records FoundNo Family History Records FoundNo Family History Records FoundNo Family History Records Found Advance Directives No Advanced Directives Records FoundNo Advanced Directives Records FoundNo Advanced Directives Records FoundNo Advanced Directives Records FoundNo Advanced Directives Records Found Additional Source Comments INFORMATION SOURCE (unrecogn ized section and content) DATE CREATED AUTHOR AUTHOR'S ORGANIZ ATION 06/03/2018 [facility] ([place]) DATE CREATED AUTHOR AUTHOR'S ORGANIZ ATION 12/28/2021 [facility] DATE CREATED AUTHOR AUTHOR'S ORGANIZ ATION 07/06/2022 [facility] DATE CREATED AUTHOR AUTHOR'S ORGANIZ ATION 06/21/2023 [facility] FOR RECORDS PERTAINING TO PATIENTS WHO ARE OR HAVE BEEN ENROLLED IN A CHEMICAL DEPENDENCY/SUBSTANCEABUSE PROGRAM, SOME INFORMATION MAY BE OMITTED. This clinical summary was aggregated from multiple sources. Caution should be exercised in using it in the provision of clinical care. This summary normalizes information from multiple sources, and as a consequence, information in this document may materially change the coding, format and clinical context of patient data. In addition, data may be omitted in some cases. CLINICAL DECISIONS SHOULD BE BASED ON THE PRIMARY CLINICAL RECORDS. [facility] [employer] [facility]. provides no warranty or guarantee of the accuracy or completeness of information in this document.
== END | disposition home or self-care (01) ==
LOC: LABSPEC 14:37
PROVIDERS: PCP Internal Medicine; Referring Provider Physician Assistant; Visit Provider Physician Assistant
DX: R05.9 Cough, unspecified (principal); R50.9 Fever, unspecified
CPT/HCPCS: 87635

== ENCOUNTER → 2024-06-04 | Outpatient (CLI) | payer OTHER, SELFPAY ==
[2024-06-04 12:49] LABS: Absolute Lymphocyte Count 2.28 X10^3/uL (0.83-4.51); Absolute Neutrophil Count 3.5 X10^3/uL (2.0-7.7); Basophil# 0.04 X10^3/uL; Basophil% 0.6 % (0-1); Eosinophil# 0.12 X10^3/uL; Eosinophils% 1.9 % (0-5); Hematocrit 41.5 % (37-47); Hemoglobin 13.3 g/dL (12.0-15.0); Lymphocyte # 2.28 X10^3/ul (0.83-4.51); Lymphocyte % 35.5 % (19-41); Mean Corpuscular Hgb 28.5 pg (27.0-32.0); Mean Corpuscular Volume 88.9 fL (81-99); Mean Platelet Vol. 11.3 fl (6.2-12.0); Monocyte# 0.47 X10^3/uL; Monocyte% 7.3 % (0-10); NRBC Flagged by Analyzer 0 % (0-5); Neutrophil % 54.5 % (47-70); Platelet Count 280 K/mm3 (150-450); RBC Distribution Width CV 12.8 % (11.6-14.6); RBC Distribution Width SD 41.5 fl (35.1-43.9); Red Blood Count 4.67 M/mm3 (4.2-5.4); White Blood Count 6.4 K/mm3 (4.4-11.0)
[2024-06-04 13:04] LABS: AST(SGOT) 27 U/L (15-37); Alanine Aminotransfer ALT/SGPT 38 U/L (13-56); Albumin, Serum 3.6 g/dL (3.2-5.0); Alkaline Phosphatase 57 U/L (45-117); Anion Gap 2 (5-15); BUN 13 mg/dL (7-18); BUN/Creat Ratio 20.6 RATIO (10-20); Calcium,Total 9.1 mg/dL (8.5-10.1); Chloride 111 mmol/L (98-107); Cholesterol 168 mg/dL (200); Creatinine, Serum 0.63 mg/dL (0.55-1.02); EST Glomerular Filtration Rate 117 mL/min (>60); Est Glom Filt Rate - Afr Amer 142 mL/min (>60); Globulin 3.5 g/dL (2.2-4.2); Glucose 93 mg/dL (74-106); High Density Lipoprotein 52 mg/dL; Potassium 4.6 mmol/L (3.5-5.1); Protein, Total 7.1 g/dL (6.4-8.2); Sodium Level 139 mmol/L (136-145); Triglycerides 60 mg/dL; Very Low Density Lipoprotein 12 mg/dL (5-40)
== END | disposition home or self-care (01) ==
LOC: BIMLAB 09:45
PROVIDERS: PCP Internal Medicine; Referring Provider Physician Assistant; Visit Provider Physician Assistant
DX: Z00.00 Encounter for general adult medical examination without abnormal findings (principal); R53.83 Other fatigue
CPT/HCPCS: 36415; 80053; 80061; 84443; 85025

== ENCOUNTER → 2024-09-15 | Outpatient (CLI) | payer OTHER, SELFPAY | END | disposition home or self-care (01) | LOC: MTLAB 09:19 → MTRAD 09:19 | PROVIDERS: PCP Internal Medicine; Referring Provider Physician Assistant; Visit Provider Physician Assistant | DX: M25.572 Pain in left ankle and joints of left foot (principal) | CPT/HCPCS: 73610 ==

== ENCOUNTER → 2025-01-01 | Outpatient (CLI) | payer OTHER, SELFPAY ==
[2025-01-05 08:07] LABS: HPV APTIMA, High Risk Negative (Negative)
== END | disposition home or self-care (01) ==
LOC: LABSPEC 10:34
PROVIDERS: PCP Internal Medicine; Referring Provider Advanced Practice Midwife; Visit Provider Advanced Practice Midwife
DX: Z12.4 Encounter for screening for malignant neoplasm of cervix (principal)
CPT/HCPCS: 87624; 88175; G0145